=== PATIENT | male | born 1970 | race Caucasian/White ===

== ENCOUNTER 2022-11-29 10:21 | Outpatient (CLI) | payer BC, SELFPAY | END 2022-11-29 10:22 | disposition home or self-care (01) | PROVIDERS: PCP Family Medicine; Visit Provider Family Medicine | DX: Z00.00 Encounter for general adult medical examination without abnormal findings (principal); E78.5 Hyperlipidemia, unspecified; I10 Essential (primary) hypertension; Z12.5 Encounter for screening for malignant neoplasm of prostate; Z13.0 Encounter for screening for diseases of the blood and blood-forming organs and certain disorders involving the immune mechanism | CPT/HCPCS: 80048; 80061; 84153 ==

== ENCOUNTER 2024-01-28 16:23 | Outpatient (CLI) | payer BC, SELFPAY ==
[2024-01-28 23:09] LABS: Chlamydia DNA Amplified* NOT DETECTED (No Detected); GC DNA Amplified* NOT DETECTED (No Detected)
== END 2024-01-28 16:24 | disposition home or self-care (01) ==
PROVIDERS: Visit Provider Nurse Practitioner Family
DX: A64 Unspecified sexually transmitted disease (principal); Z11.3 Encounter for screening for infections with a predominantly sexual mode of transmission
CPT/HCPCS: 86592; 86703; 86705; 86803; 87491; 87591